=== PATIENT | female | born 1930 | race Caucasian/White ===

== ENCOUNTER 2018-04-21 18:29 | Inpatient (IN) | payer MEDICAID, OTHER ==
[~2018-04-21] VITALS: Ht 243.8 cm; Wt 50.0 kg
[2018-04-21] MEDS ORDERED: DEXTROSE 5%-0.45% NACL 1,000 ML IV SCH (22:09)
--- NOTE | 2018-04-21 22:19 | HP ---
Date/Time of Note Date/Time of Note DATE: 04/21/18 TIME: 22:18 Assessment/Plan VTE Prophylaxis Pharmacological prophylaxis: other Assessment/Plan Hospital Course HPI Patient is a elderly female with a past medical history of hydrocephalus all her life, who presents to [facility] for possible syncopal episode. 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 Patient currently is alert and oriented, no acute distress and feels well. Patient also stated that there is a mild dizziness. Patient's niece is at bedside providing HPI. Niece states that the last time she had any imaging was approximately 15 years ago at [facility]. Patient has been suffering from gait abnormalities as well as some mild dizziness for the past 2 years. Patient denies chest pain, shortness of breath, abdominal pain, leg pain, dysuria, headache Objective Physical exam General: Patient is laying in bed and answers questions appropriately Mentation: Patient is alert and oriented 4, Head: Normocephalic atraumatic Eyes: EOMI, pupils reactive to light Neck: Supple, nontender, midline Respiratory: Clear to auscultation bilaterally Cardiovascular: regular rate, no obvious murmurs Gastrointestinal: non-tender to palpation, bowel sounds heard. 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 Mcdermott called, will consult, wants MRI in the am w and wo contrast. -Monitor -N.p.o. for now, IV fluid -request to get most recent imaging done at [facility], however doubtful due to it being over 15 years ago Dizziness -Acute on chronic Anemia -very mild, monitor Leukopenia -Mild, will repeat labs in a.m. Disposition -Follow-up with neurosurgeon recommendations in the morning, pending MRI in the morning Result Diagram: 04/21/18193904/21/181939 Results 24hrs Laboratory Tests Test 04/21/18 19:39 04/21/18 19:40 Prothrombin Time 12.3 Prothrombin Time Ratio 1.0 INR International Normalized Ratio 0.90 Activated Partial Thromboplast Time 28.5 White Blood Count 4.4 L Red Blood Count 3.96 L Hemoglobin 11.6 L Hematocrit 36.0 L Mean Corpuscular Volume 90.9 Mean Corpuscular Hemoglobin 29.3 Mean Corpuscular Hemoglobin Concent 32.2 Red Cell Distribution Width 13.1 Platelet Count 266 Mean Platelet Volume 9.6 Immature Granulocytes % 0.500 H Neutrophils % 41.6 Lymphocytes % 40.3 Monocytes % 12.6 H Eosinophils % 4.3 Basophils % 0.7 Nucleated Red Blood Cells % 0.0 Immature Granulocytes # 0.020 Neutrophils # 1.8 Lymphocytes # 1.8 Monocytes # 0.6 Eosinophils # 0.2 Basophils # 0.0 Nucleated Red Blood Cells # 0.0 Sodium Level 137 Potassium Level 4.0 Chloride Level 103 Carbon Dioxide Level 23 Anion Gap 11 Blood Urea Nitrogen 22 H Creatinine 0.65 Est Glomerular Filtrat Rate mL/min Glucose Level 126 Calcium Level 9.3 Total Bilirubin 0.1 L Direct Bilirubin 0.00 Indirect Bilirubin 0.1 Aspartate Amino Transf (AST/SGOT) 34 Alanine Aminotransferase (ALT/SGPT) 21 Alkaline Phosphatase 109 Troponin I < 0.012 Total Protein 7.5 Albumin 4.1 Globulin 3.40 H Albumin/Globulin Ratio 1.20 HPI/ROS Admit Date/Time Admit Date/Time PMH/Family/Social Past Medical History Coded Allergies: No Known Allergy (Unverified , 04/21/18) Social History Smoking Status: Never smoker Exam/Review of Systems Vital Signs Vitals Vital Signs Date Temp Pulse Resp B/P (MAP) Pulse Ox O2 O2 Flow FiO2 Time Delivery Rate 04/21/18 98.6 95 16 158/79 97 Room Air 19:07 (105) VIDAL BLAEK Apr 21, 2018 22:18
[2018-04-21] MEDS ORDERED: ONDANSETRON 4 MG INJ IV PRN (22:30)
[2018-04-21] MEDS ORDERED: ACETAMINOPHEN 650 MG SUPP PR PRN (22:30)
[2018-04-21] MEDS ORDERED: NACL 0.9% 3 ML SYG IV SCH (22:30)
--- NOTE | 2018-04-21 23:56 | ERD ---
ER Documentation Chief Complaint Chief Complaint chronic dizziness worse today w/ mild nausea, hx hydrocephalus since HPI This is an 87-year-old female who has had a complaint of chronic dizziness pretty much her entire life that is Significantly worse over the last week. 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 She has had associated nausea and vomiting. Denies any headache. Denies any fevers or chills. Denies any dysarthria. No difficulty word finding. No facial droop. ROS All systems reviewed and are negative except as per history of present illness. Allergies Allergies: Coded Allergies: No Known Allergy (Unverified , 04/21/18) PMhx/Soc History of Surgery: Yes (L CATARACT) Anesthesia Reaction: No Hx Neurological Disorder: No Hx Respiratory Disorders: No Hx Cardiac Disorders: Yes (HTN) Hx Psychiatric Problems: No Hx Miscellaneous Medical Probl: No Hx Alcohol Use: Yes (ONE ALCOHOLIC BEVERAGE TODAY ) Hx Substance Use: No Hx Tobacco Use: No Smoking Status: Never smoker Physical Exam Vitals Vital Signs Date Temp Pulse Resp B/P (MAP) Pulse Ox O2 O2 Flow FiO2 Time Delivery Rate 04/21/18 83 16 111/90 98 Room Air 22:31 (97) 04/21/18 78 16 122/72 98 Room Air 21:30 (89) 04/21/18 98.6 95 16 158/79 97 Room Air 19:07 (105) 04/21/18 98.7 96 20 141/82 98 18:39 (101) Physical Exam Const: No acute distress Head: Atraumatic Eyes: Normal Conjunctiva ENT: Normal External Ears, Nose and Mouth. Neck: Full range of motion. No meningismus. Resp: Clear to auscultation bilaterally Cardio: Regular rate and rhythm, no murmurs Abd: Soft, non tender, non distended. Normal bowel sounds Skin: No petechiae or rashes Back: No midline or flank tenderness Ext: No cyanosis, or edema Neur: Awake and alert Psych: Normal Mood and Affect Result Diagram: 04/21/18193904/21/181939 Results 24 hrs Laboratory Tests Test 04/21/18 19:39 04/21/18 19:40 Prothrombin Time 12.3 Sec Prothrombin Time Ratio 1.0 INR International Normalized Ratio 0.90 Activated Partial Thromboplast Time 28.5 Sec White Blood Count 4.4 10^3/ul Red Blood Count 3.96 10^6/ul Hemoglobin 11.6 g/dl Hematocrit 36.0 % Mean Corpuscular Volume 90.9 fl Mean Corpuscular Hemoglobin 29.3 pg Mean Corpuscular Hemoglobin Concent 32.2 g/dl Red Cell Distribution Width 13.1 % Platelet Count 266 10^3/UL Mean Platelet Volume 9.6 fl Immature Granulocytes % 0.500 % Neutrophils % 41.6 % Lymphocytes % 40.3 % Monocytes % 12.6 % Eosinophils % 4.3 % Basophils % 0.7 % Nucleated Red Blood Cells % 0.0 /100WBC Immature Granulocytes # 0.020 10^3/ul Neutrophils # 1.8 10^3/ul Lymphocytes # 1.8 10^3/ul Monocytes # 0.6 10^3/ul Eosinophils # 0.2 10^3/ul Basophils # 0.0 10^3/ul Nucleated Red Blood Cells # 0.0 10^3/ul Sodium Level 137 mmol/L Potassium Level 4.0 mmol/L Chloride Level 103 mmol/L Carbon Dioxide Level 23 mmol/L Anion Gap 11 Blood Urea Nitrogen 22 mg/dl Creatinine 0.65 mg/dl Est Glomerular Filtrat Rate mL/min mL/min Glucose Level 126 mg/dl Calcium Level 9.3 mg/dl Total Bilirubin 0.1 mg/dl Direct Bilirubin 0.00 mg/dl Indirect Bilirubin 0.1 mg/dl Aspartate Amino Transf (AST/SGOT) 34 IU/L Alanine Aminotransferase (ALT/SGPT) 21 IU/L Alkaline Phosphatase 109 IU/L Troponin I < 0.012 ng/ml Total Protein 7.5 g/dl Albumin 4.1 g/dl Globulin 3.40 g/dl Albumin/Globulin Ratio 1.20 Current Medications Medications Dose Sig/Arpita Start Time Status Last (Trade) Ordered Route PRN Stop Time Admin Dose Reason Admin 1,000 ml @ [id number] IV 04/21/18 Dextrose/Sodi 75 mls/hr 22:09 um Chloride IV Flush 3 ml PER 04/21/18 (NS 3 ml) PROTOCOL IV 22:30 Ondansetron 4 mg Q6H PRN 04/21/18 HCl (Zofran IV 22:30 Inj) NAUSEA/VOMITI NG 650 mg Q6H PRN 04/21/18 Acetaminophen [place] .PAIN 1-3 22:30 (Tylenol OR TEMP Supp) Procedures/MDM Emergency department course: Patient seen and noted by triage nurse. Placed in bed for MD evaluation. Had a cardiac workup including a head CT. Serial exams remained stable here in the ER. Patient remained ataxic throughout. EKG: Rate/Rhythm: [Normal Sinus Rhythm] QRS, ST, T-waves: [No changes consistent w/ acute ischemia] Impression: [No evidence of ischemia or arrhythmia] Chest X-ray 1V Interpreted by me: Soft Tissue: No acute abnormalities Bones: No acute abnormalities Mediastinum/Cardiac Silhouette/Lungs: [No acute abnormalities] CT scan of the head shows massive hydrocephalus with midline shift. Please see full dictation for full report. Medical decision making: This is an 87-year-old female with massive hydrocephalus with midline shift. He does have history of congenital hydrocephalus, however given her worsening symptoms in the acute phase I feel she needs to be admitted for further evaluation and management. Neurosurgery on-call was notified and agreed with my assessment and request an MRI to be done. Hospitalist was made aware. Critical Care: Time: 35 minutes, independent of any separately billable procedural time Treatments/Evaluations: Close monitoring and treatment of unstable vital signs, cardiorespiratory, and neurologic status, while maintaining tight balance of fluid, respiratory, and cardiac interventions. Accepting Care Team: Current data and ongoing care discussed at time of admission. Primary: Dr. Stein Consulting: Dr. Mcdermott Outstanding Data: none Departure Diagnosis: Primary Impression: Hydrocephalus Condition: Critical ADDIE ARIAS Apr 21, 2018 23:56
[2018-04-22] VITALS (24 sets, daily range): BP systolic 91–168; BP diastolic 48–125; PULSE 67–98; RESP 13–26; Ht 243.8 cm; Wt 50.0 kg
--- NOTE | 2018-04-22 13:40 | PN ---
Date/Time of Note Date/Time of Note DATE: 04/22/18 TIME: 13:37 Assessment/Plan VTE Prophylaxis Risk score (from Ns)>0 risk: 4 SCD applied (from Ns): Yes Pharmacological prophylaxis: heparin Lines/Catheters IV Catheter Type (from [facility]): Peripheral IV Urinary Cath still in place: No Assessment/Plan Hospital Course 87 yo female with congential hydrocephalus x lifetime who presents with pre- syncope - Unclear if symptoms related to chronic hydrocephalus vs syncope. No symptoms of orthostatis but she is chronically vertiginous it sounds like - Troponin negative, no arrythmia detected - TTE pending Hydrocephalus: - MRI pending - Lifelong condition, not clear there is any change to patient's symptoms Result Diagram: 04/22/185 04/22/18 0455 Results 24hrs Laboratory Tests Test 04/21/18 19:39 04/21/18 19:40 04/22/18 04:55 Prothrombin Time 12.3 Prothrombin Time Ratio 1.0 INR International Normalized Ratio 0.90 Activated Partial Thromboplast Time 28.5 White Blood Count 4.4 L 5.8 # Red Blood Count 3.96 L 3.84 L Hemoglobin 11.6 L 11.4 L Hematocrit 36.0 L 33.7 L Mean Corpuscular Volume 90.9 87.8 Mean Corpuscular Hemoglobin 29.3 29.7 Mean Corpuscular Hemoglobin Concent 32.2 33.8 Red Cell Distribution Width 13.1 13.2 Platelet Count 266 264 Mean Platelet Volume 9.6 9.6 Immature Granulocytes % 0.500 H 0.200 Neutrophils % 41.6 56.1 Lymphocytes % 40.3 30.5 Monocytes % 12.6 H 10.3 Eosinophils % 4.3 2.4 Basophils % 0.7 0.5 Nucleated Red Blood Cells % 0.0 0.0 Immature Granulocytes # 0.020 0.010 Neutrophils # 1.8 3.3 Lymphocytes # 1.8 1.8 Monocytes # 0.6 0.6 Eosinophils # 0.2 0.1 Basophils # 0.0 0.0 Nucleated Red Blood Cells # 0.0 0.0 Sodium Level 137 144 Potassium Level 4.0 4.2 Chloride Level 103 105 Carbon Dioxide Level 23 26 Anion Gap 11 13 Blood Urea Nitrogen 22 H 16 Creatinine 0.65 0.53 Est Glomerular Filtrat Rate mL/min Glucose Level 126 102 Calcium Level 9.3 9.2 Total Bilirubin 0.1 L 0.3 Direct Bilirubin 0.00 0.00 Indirect Bilirubin 0.1 0.3 Aspartate Amino Transf (AST/SGOT) 34 35 Alanine Aminotransferase (ALT/SGPT) 21 27 Alkaline Phosphatase 109 89 Troponin I < 0.012 Total Protein 7.5 7.0 Albumin 4.1 3.8 Globulin 3.40 H 3.20 Albumin/Globulin Ratio 1.20 1.18 Hemoglobin A1c 5.4 Magnesium Level 2.0 Triglycerides Level 103 Cholesterol Level 142 LDL Cholesterol, Calculated 85 HDL Cholesterol 36 Cholesterol/HDL Ratio 3.9 Subjective 24 Hr Interval Summary Free Text/Dictation Patient's family reports patient is at baseline Chronic feeling of vertigo Pseudobulbar symptoms of laughter chronic Exam/Review of Systems Exam Vitals Vital Signs Date Temp Pulse Resp B/P (MAP) Pulse Ox O2 O2 Flow FiO2 Time Delivery Rate 04/22/18 71 12:00 04/22/18 98.7 153/84 11:33 (107) 04/22/18 18 100 11:00 04/22/18 Room Air 06:00 Intake and Output 04/21/18 04/21/18 04/22/18 1515:00 23:00 07:00 IntakeIntake Total 285 ml OutputOutput Total 500 ml BalanceBalance -215 ml Exam Macrocephalic RRR + JVD Appears comfortable No distress No edema Moves x 4 spontaneously Results Results 24hrs Laboratory Tests Test 04/21/18 19:39 04/21/18 19:40 04/22/18 04:55 Prothrombin Time 12.3 Prothrombin Time Ratio 1.0 INR International Normalized Ratio 0.90 Activated Partial Thromboplast Time 28.5 White Blood Count 4.4 L 5.8 # Red Blood Count 3.96 L 3.84 L Hemoglobin 11.6 L 11.4 L Hematocrit 36.0 L 33.7 L Mean Corpuscular Volume 90.9 87.8 Mean Corpuscular Hemoglobin 29.3 29.7 Mean Corpuscular Hemoglobin Concent 32.2 33.8 Red Cell Distribution Width 13.1 13.2 Platelet Count 266 264 Mean Platelet Volume 9.6 9.6 Immature Granulocytes % 0.500 H 0.200 Neutrophils % 41.6 56.1 Lymphocytes % 40.3 30.5 Monocytes % 12.6 H 10.3 Eosinophils % 4.3 2.4 Basophils % 0.7 0.5 Nucleated Red Blood Cells % 0.0 0.0 Immature Granulocytes # 0.020 0.010 Neutrophils # 1.8 3.3 Lymphocytes # 1.8 1.8 Monocytes # 0.6 0.6 Eosinophils # 0.2 0.1 Basophils # 0.0 0.0 Nucleated Red Blood Cells # 0.0 0.0 Sodium Level 137 144 Potassium Level 4.0 4.2 Chloride Level 103 105 Carbon Dioxide Level 23 26 Anion Gap 11 13 Blood Urea Nitrogen 22 H 16 Creatinine 0.65 0.53 Est Glomerular Filtrat Rate mL/min Glucose Level 126 102 Calcium Level 9.3 9.2 Total Bilirubin 0.1 L 0.3 Direct Bilirubin 0.00 0.00 Indirect Bilirubin 0.1 0.3 Aspartate Amino Transf (AST/SGOT) 34 35 Alanine Aminotransferase (ALT/SGPT) 21 27 Alkaline Phosphatase 109 89 Troponin I < 0.012 Total Protein 7.5 7.0 Albumin 4.1 3.8 Globulin 3.40 H 3.20 Albumin/Globulin Ratio 1.20 1.18 Hemoglobin A1c 5.4 Magnesium Level 2.0 Triglycerides Level 103 Cholesterol Level 142 LDL Cholesterol, Calculated 85 HDL Cholesterol 36 Cholesterol/HDL Ratio 3.9 Medications Medication Current Medications IV Flush (NS 3 ml) 3 ml PER PROTOCOL IV ; Start 04/21/18 at 22:30 Ondansetron HCl (Zofran Inj) 4 mg Q6H PRN IV NAUSEA/VOMITING; Start 04/21/18 at 22:30 Acetaminophen (Tylenol Supp) 650 mg Q6H PRN [place] .PAIN 1-3 OR TEMP; Start 04/21/18 at 22:30 NEELIMA WOOTEN MD Apr 22, 2018 13:40
--- NOTE | 2018-04-22 16:34 | QN ---
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 She has an intact cortical mantle and preserved sulci over both hemispheres. Per ER she is awake and alert. Syncope unlikely related to HCP in my opinion, which is chronic. MRI will be useful however to evaluate further. Thank you. ASIM TEJADA MD Apr 22, 2018 16:34
[2018-04-23] MEDS ORDERED: hydrALAzine 20 MG INJ IV ONE
[2018-04-23 00:16] VITALS: BP 152/70; PULSE 61
[2018-04-23 05:56] VITALS: BP 136/64; PULSE 68
--- NOTE | 2018-04-23 07:42 | RADRPT ---
Echocardiogram Report Patient Name: JOSE MANUEL ARMSTRONGPatient ID: [id number] : 1930 (87y 11m)Study Date: 04/22/2018 1:41:48 PM Gender: FAccession #: [id number] Tech: Lenny Cardozo [facility] Location: 117 Ref.Physician: NEELIMA WOOTEN Height(Cm): BSA: Weight(Kg): Quality: AdequateAccount #: Procedures: Echocardiographic Report: Transthoracic echocardiogram with complete 2D, M-Mode, and doppler examination. Indications: Syncope. Measurements: 2D/M Mode Doppler Measurement Value Normal Range Measurement Value Normal Range LVIDd 2D 3.0 [ 3.8 - 5.2 ] cm AV Peak Winston 1.5 [ 100.0 - 170.0 ] cm/sec LVIDs 2D 2.1 [ 2.2 - 3.5 ] cm AV Peak PG 10.0 [ 2.0 - 9.0 ] mmHg LVPWd 2D 0.8 [ 0.6 - 0.9 ] cm LVOT Peak Winston 0.9 [ 70.0 - 110.0 ] cm/sec IVSd 2D 1.1 [ 0.6 - 0.9 ] cm LVOT Peak PG 3.0 [ 2.0 - 6.0 ] mmHg AoR Diam 2D 2.7 [ 2.3 - 3.1 ] cm MV E Peak Winston 0.6 [ 60.0 - 130.0 ] cm/sec EDV 2D 33.6 [ 46.0 - 106.0 ] ml MV A Peak Winston 0.9 [ 100.0 - 120.0 ] cm/sec ESV 2D 13.9 [ 14.0 - 42.0 ] ml MV E/A 0.7 [ 0.8 - 1.5 ] ratio EF 2D 58.6 [ 54.0 - 74.0 ] percent MV Decel Time 165 [ 104 - 258 ] msec LA Dimen 2D 2.7 [ 2.7 - 3.8 ] cm Lat E` Winston 0.1 [ 10.0 - 15.0 ] cm/sec Lateral E/E` 8.8 [ 1.0 - 2.0 ] ratio Med E` Winston 0.1 cm/sec MV E/A 0.7 [ 0.8 - 1.5 ] ratio TR Peak Winston 2.1 [ 100.0 - 280.0 ] cm/sec TR Peak PG 18.0 mmHg RVSP 28.0 [ 10.0 - 36.0 ] mmHg Findings: Left Ventricle: Normal left ventricular systolic function. Normal left ventricular cavity size. Normal left ventricular wall thickness. Ejection fraction is visually estimated at 65 %. Tissue Doppler/Mitral Doppler indices are consistent with impaired relaxation (Stage I diastolic dysfunction). Right Ventricle: Normal right ventricular size. Normal right ventricular systolic function. Left Atrium: The left atrium is normal in size. Right Atrium: The right atrium is normal in size. Mitral Valve: Mild mitral leaflet calcification. Mild mitral annular calcification. Trace mitral regurgitation. Aortic Valve: Mild aortic valve regurgitation. Tricuspid Valve: Normal appearance of the tricuspid valve. Estimated peak PA systolic pressure 28 mmHg. There is mild tricuspid regurgitation. Pulmonic Valve: Pulmonic valve not well visualized. Pericardium: Trivial pericardial effusion. Aorta: Normal aortic root. IVC: Normal size and normal respiratory collapse consistent with normal right atrial pressure. Conclusions: Normal left ventricular systolic function. Normal left ventricular cavity size. Normal left ventricular wall thickness. Ejection fraction is visually estimated at 65 %. Tissue Doppler/Mitral Doppler indices are consistent with impaired relaxation (Stage I diastolic dysfunction). Mild mitral leaflet calcification. Mild mitral annular calcification. Trace mitral regurgitation. Mild aortic valve regurgitation. Normal appearance of the tricuspid valve. Estimated peak PA systolic pressure 28 mmHg. There is mild tricuspid regurgitation. Trivial pericardial effusion. Electronically Signed By: Bg Banuelos 2018-04-23 07:41:23 PST
[2018-04-23 07:55] VITALS: BP 141/84; PULSE 78; RESP 20
--- NOTE | 2018-04-23 11:12 | PDOCDIS ---
Discharge Instructions CONDITION [id number] Patient Condition: [id number] Stable HOME CARE INSTRUCTIONS: [id number] Diet Instructions: [id number] Regular OTHER ORDERS: Other Orders: 1. Resume prehospitalization activities. 2. Take a regular diet. 3. Follow-up with your primary care physician in 2 weeks. 4. Please go to the nearest emergency room if you have significant headache, new onset focal weakness, or any other unusual signs/symptoms. ZAIRA STEELE NP Apr 23, 2018 11:12
--- NOTE | 2018-04-23 11:17 | DS ---
Date/Time of Note Date/Time of Note DATE: 04/23/18 TIME: 11:17 Discharge Summary Admission/Discharge Info Admit Date/Time Apr 21, 2018 at 22:02 Discharge Date/Time Discharge Diagnosis 1. Congenital hydrocephalus. 2. Normocytic, normochromic anemia. Patient Condition: Stable Consults 1. Shahab Mcdermott MD, Neurosurgery Procedures Brain CT IMPRESSION: 1. Severe massive bilateral lateral ventricles hydrocephalous. 2. The third and fourth ventricles are unremarkable. 3. 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 4. There is mass effect on the cerebellum with [id number] midline shift. 5. No evident acute hemorrhage. Brain MRI IMPRESSION: 1. 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 2. 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 3. 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 4. No acute infarct. 5. Bilateral mastoid air cell disease. 2D Echocardiogram Conclusions: Normal left ventricular systolic function. Normal left ventricular cavity size. Normal left ventricular wall thickness. Ejection fraction is visually estimated at 65 %. Tissue Doppler/Mitral Doppler indices are consistent with impaired relaxation (Stage I diastolic dysfunction). Mild mitral leaflet calcification. Mild mitral annular calcification. Trace mitral regurgitation. Mild aortic valve regurgitation. Normal appearance of the tricuspid valve. Estimated peak PA systolic pressure 28 mmHg. There is mild tricuspid regurgitation. Trivial pericardial effusion. Hx of Present Illness This is an 87-year-old female with a past medical history of hydrocephalus. The patient presented to the emergency room for further evaluation of possible syncopal episode. The patient also complained of mild dizziness. The patient underwent a brain CT scan that showed severe massive bilateral ventricular hydrocephalus with mass-effect on the cerebellum with left to right midline shift. Therefore, the patient was admitted to inpatient setting for further treatment and evaluation. Hospital Course The patient was admitted to inpatient to intensive care unit. A neurosurgery consult was obtained because of the patient's significant hydrocephalus. Neurosurgery evaluated the patient and conveyed that the patient's possible syncope is unlikely related to the patient's hydrocephalus. The patient underwent a brain MRI that was negative for any acute stroke. The patient also underwent a 2D echocardiogram that was showing preserved left ventricular ejection fraction. The patient did not have any further episodes in-house. The patient has known history of hydrocephalus since her childhood. The patient lives a relatively normal life with the this hydrocephalus. The patient was also noticed to have normocytic, normochromic anemia. The patient's H&H remained stable. The patient is back to her baseline. There was a no further evaluation indicated at this time. The patient can follow-up with her primary care physician as outpatient. Discharge Instructions 1. Resume prehospitalization activities. 2. Take a regular diet. 3. Follow-up with your primary care physician in 2 weeks. 4. Please go to the nearest emergency room if you have significant headache, new onset focal weakness, or any other unusual signs/symptoms. The patient/family verbalized understanding of the discharge instructions. At this time would like to thank all the consultants for seeing the patient and providing clinical recommendations. The patient was seen in collaboration with Dr. Howard. Home Meds No Active Prescriptions or Reported Meds Follow-up Plan The patient to follow-up with her primary care physician. Primary Care Provider Not On Staff Doctor Time spent on discharge: > 30 minutes ZAIRA STEELE NP Apr 23, 2018 11:17
== END 2018-04-23 12:05 | disposition home or self-care (01) | DRG 57 ==
LOC: EDBD 18:29 → E/R 18:29 → ICU 22:02 → MERGE 22:02 → MS1 04-22 21:21
PROVIDERS: ADMIT Internal Medicine; ATTEND Internal Medicine
DX: G91.9 Hydrocephalus, unspecified (principal); R55 Syncope and collapse; D64.9 Anemia, unspecified; I10 Essential (primary) hypertension; R42 Dizziness and giddiness; D72.819 Decreased white blood cell count, unspecified
CPT/HCPCS: 70450; 70553; 80053; 80061; 83036; 83735; 84484; 85025; 85610; 85730; 87081; 93005; 93306; J0360; J7042